=== PATIENT | male | born 1990 | race African-American/Black ===

== ENCOUNTER 2020-10-01 22:52 | Emergency (ER) | payer MEDICAID ==
[~2020-10-01] VITALS: Ht 170.2 cm; Wt 79.8 kg
[2020-10-01 23:09] VITALS: BP 157/87
--- NOTE | 2020-10-01 23:25 | NUR ---
PT TAKEN TO BED 4
--- NOTE | 2020-10-01 23:25 | NUR ---
29 YO/M BIB SELF W LACERATIONS X2 TO R FOREARM S/P SKATEBOARDING AND FALLING CUTTING HIS ARM ON A "SHARP OBJECT," X3 HOURS AGO. PATIENT REPORTS SLIGHTLY BUMPIN HEAD DURING FALL, DENIES ANY LOC, DIZZYNESS, OR HEADACHE. PATIENT DENIES ANY PAIN AT THIS TIME. PATIENT AOX4, GCS 15, PRESSURE APPLIED TO WOUNDS, DRESSING ABBLIED AND PRESSURE MAINTAINED W COBAND WRAP. BLEEDING NOW UNDER CONTROL. PULSES PRESENT +2, CAP REFILL <3SEC, SENSATION PRESENT. REPORTS LAST TETANUS VACCINE W/IN A YEAR. PATIENT LAYING IN BED LOCKED INLOWEST POSITION, X1 SIDERAIL UP, BREATHING EVEN AND UNLABORED. NAD NOTED, WILL CONTINUE TO MONITOR. PMH: DENIES NKA
[2020-10-02] MEDS ORDERED: LIDOCAINE/EPI 1% 1:100000 20 ML VIAL INJ ONE
--- NOTE | 2020-10-02 00:40 | NUR ---
ERMD AT BEDSIDE FOR PATIENT CARE.
[2020-10-02] MEDS ORDERED: BACITRACIN OINT 500 UNITS/GM PKT TP ONE (01:20)
--- NOTE | 2020-10-02 01:50 | NUR ---
Provided wound cleaning, applied bacitracin and dressed wound w non-adherent dressings.
--- NOTE | 2020-10-02 01:55 | NUR ---
Patient laying in bed w eyes closed, bed locked in lowest position x1 siderail up. Breathing even and unlabored, NAD noted. Will continue to monitor.
[2020-10-02 02:10] VITALS: BP 117/61
--- NOTE | 2020-10-02 02:10 | NUR ---
Patient discharged with v/s stable. Written and verbal after care instructions given and explained. Patient verbalized understanding. Ambulatory with steady gait. All questions addressed prior to discharge. Advised to follow up with PMD.
== END 2020-10-02 02:10 | disposition home or self-care (01) ==
LOC: MED 22:52
DX: S51.811A Laceration without foreign body of right forearm, initial encounter (principal); X58.XXXA Exposure to other specified factors, initial encounter; Y93.89 Activity, other specified; Y92.89 Other specified places as the place of occurrence of the external cause; Y99.8 Other external cause status
CPT/HCPCS: 12002; 99284; J2001; 99282